=== PATIENT | female | born 1950 | race Caucasian/White ===

== ENCOUNTER 2016-10-11 10:19 | Inpatient (IN) | payer OTHER, MEDICARE ==
[~2016-10-11] VITALS: Ht 171.7 cm; Wt 93.1 kg
[2016-10-16] MEDS ORDERED: METO-309 PO ×2 (13:43)
[2016-10-17] MEDS ORDERED: DEXAMETHASONE SOD PHOS 20 MG/5 ML VIAL IV SCH (07:30)
[2016-10-17] MEDS ORDERED: EXPAREL PERI-ARTICULAR INJECTION (TOTAL VOL. 60 ML) P-ARTICULR SCH ×2 (07:30)
[2016-10-17] MEDS ORDERED: POVIDONE IODINE 7.5% SCRUB 118 ML BOTTLE TOPICAL SCH (07:30)
[2016-10-17] MEDS ORDERED: CHLORHEXIDINE GLUCONATE 2 % 1 PACK (2 CLOTHS) TOPICAL PRN (07:30)
[2016-10-17] MEDS ORDERED: TRANEXAMIC ACID IV SCH ×2 (07:30→13:00)
[2016-10-17] MEDS ORDERED: VANCOMYCIN 1000 MG/NS 250 ML (for <70 kg) IV SCH ×2 (07:30)
[2016-10-17] MEDS ORDERED: INSULIN HUMAN REGULAR 1,000 UNITS/10 ML VIAL SQ PRN (07:30)
[2016-10-17] MEDS ORDERED: SODIUM CHLORID 0.9% 500 ML IV PRN (07:30)
[2016-10-17] MEDS ORDERED: POVIDONE IODINE 5% (ANTISEPSIS KIT) 4 APPLICATIONS EACH NARE PRN (07:30)
[2016-10-17] MEDS ORDERED: LACTATED RINGER'S 1000 ML IV PRN (07:30)
[2016-10-17] MEDS ORDERED: SODIUM CHLORIDE 0.9% IV SCH ×2 (07:30→13:00)
[2016-10-17] MEDS ORDERED: ceFAZolin 2 GM PREMIX 50 ML IV SCH (07:30)
[2016-10-17] MEDS ORDERED: METOPROLOL TARTRATE 25 MG TAB PO PRN (07:30)
[2016-10-17 08:32] VITALS: BP 147/84; PULSE 77; RESP 18; TEMP 98.1; O2SAT 96
[2016-10-17] MEDS ORDERED: GENTAMICIN SULFATE 80 MG/2 ML VIAL ONE (09:10)
[2016-10-17] MEDS ORDERED: FAMOTIDINE 20 MG/2 ML VIAL ONE (09:39)
[2016-10-17] MEDS ORDERED: ACETAMINOPHEN 1000 MG/100 ML VIAL IV ONE ×2 (09:39→10:12)
[2016-10-17] MEDS ORDERED: MIDAZOLAM HCL 2 MG/2 ML VIAL ONE (09:39)
[2016-10-17] MEDS ORDERED: ONDANSETRON HCL 4 MG/2 ML VIAL IV PUSH ONE (12:00)
[2016-10-17] MEDS ORDERED: PROPOFOL 200 MG/20 ML AMP IV ONE (12:00)
[2016-10-17] MEDS ORDERED: PHENYLEPH/NS 1000 MCG/10 ML SYR IV ONE (12:00)
[2016-10-17] MEDS ORDERED: LACTATED RINGER'S 1000 ML INJ 1,000 ML IV ONE (12:00)
[2016-10-17] MEDS ORDERED: NEOSTIGMINE 3 MG/3 ML SYR IV ONE (12:00)
--- NOTE | 2016-10-17 12:23 | PD.OP ---
cc: Bridger Roach MD Operative Report Date of Surgery: Oct 17, 2016 Preoperative Diagnosis: Right hip severe osteoarthritis Postoperative Diagnosis: Same Procedure: Right total hip arthroplasty Anesthesia: Gen. Surgeon: Bridger Roach Program Support Specialist(s): EMA Felix The surgical procedure was assisted by my Advanced Registered Nurse Practitioner. My MANAGER STERILE presence was necessary throughout this case for the manipulation and positioning of the surgical extremity. My MANAGER STERILE was assisting me throughout the duration of this procedure. The skill set of an Advance Registered Nurse Practitioner was medically necessary to complete this procedure. During the surgical case, the nursing surgical services director was working at the back table and the Advance Registered Nurse Practitioner was directly assisting me. Operation and Findings: IMPLANT DESCRIPTION: 1. [place] Gription Cup, acetabular size 52. 2. [place] AltrX polyethylene, neutral. 4. [place] femoral stem size 9, no collar, standard offset. 5. Femoral head/neck ceramic, 36, +1.5. ESTIMATED BLOOD LOSS: 250 cc. JUSTIFICATION FOR PROCEDURE: The patient has end-stage osteoarthritis to the hip. There is an attached conservative measures pathway form in the chart that describes the nonoperative measures that were undertaken prior to consideration of surgical management. The patient understood the risks and benefits of surgical management. See my office notes for further details. PROCEDURE: The patient was brought back to the operative theatre. Adequate anesthesia was obtained. The patient received intravenous vancomycin and Ancef. The patient was carefully placed on the operative table. The lower extremity was prepped and draped in the usual sterile fashion. Fluoroscopic images were obtained. We made a standard anterior incision over the hip. We dissected through the TFL fascia, exposing the anterior capsule. Arthrotomy was performed in a T-shaped fashion. The capsule was tagged with a #2 FiberWire. End-stage arthritis was identified. Osteotomy was performed through the femoral neck exposing the acetabulum. Remnants of the labrum were resected and osteophytes were removed. We sequentially reamed the acetabulum. We trialed the hip and placed the final cup into position. This was done under fluoroscopic guidance to obtain the appropriate inclination and anteversion. A manhole cover was placed into the acetabular component. We then placed the final polyethylene into position and confirmed that it was well seated. Capsular attachments on the calcar and the inner aspect of the greater trochanter were resected. On the proximal aspect of the femur we used a rongeur , box osteotome, canal finder, sequential broaches and lateralizing rasp. We calcar planed the proximal femur. Then thoroughly irrigated the wound. We trialed the hip with the appropriate size stem. We placed the final stem in to position and trialed again. The hip was stable while it was externally rotated 70 degrees when the leg was lowered to the floor. The final head was applied, and final fluoroscopic images were obtained. The wound was thoroughly irrigated again. Interarticular injection of liposomal bupivacaine was given. The capsule was closed with #2 FiberWire and #1 Vicryl. The deep fascia was closed with a #2 Stratafix, followed by 2-0 Vicryl in the skin and ozzy. Postop plan is to weight-bear as tolerated. DVT prophylaxis will be performed with Hilda, LISA ibarra, early mobilization, and Lovenox followed by aspirin. Bridger Roach MD Oct 17, 2016 12:23
[2016-10-17] MEDS ORDERED: NORC5TAB PO (12:25)
[2016-10-17] MEDS ORDERED: ENOX40P SQ (12:25)
[2016-10-17] MEDS ORDERED: ASPI325T PO (12:25)
[2016-10-17] MEDS ORDERED: MAGNESIUM HYDROXIDE SUSP 30 ML CUP PO PRN (12:30)
[2016-10-17] MEDS ORDERED: BISACODYL 10 MG SUPP RECTAL PRN (12:30)
[2016-10-17] MEDS ORDERED: diphenhydrAMINE HCL 50 MG/ML VIAL IV PRN (12:30)
[2016-10-17] MEDS ORDERED: ONDANSETRON HCL 4 MG/2 ML VIAL IVP PRN (12:30)
[2016-10-17] MEDS ORDERED: MORPHINE SULFATE 4 MG/ML INJ IV PUSH PRN (12:30)
[2016-10-17] MEDS ORDERED: ALUMINUM/MAGNESIUM/SIMETH 30 ML CUP PO PRN (12:30)
[2016-10-17] MEDS ORDERED: NALOXONE HCL 0.4 MG/ML AMP IV PRN (12:30)
[2016-10-17] MEDS ORDERED: Post-op Orders (for Pharmacy) MISC XX ONE (12:30)
[2016-10-17] MEDS ORDERED: SODIUM CHLORIDE 0.9% FLUSH 5 ML FLUSH IVF PRN (12:30)
[2016-10-17] MEDS ORDERED: *morphine SULFATE 8 MG/ML PERIprocedure ONLY ONE ×3 (12:48→14:41)
[2016-10-17] MEDS ORDERED: PILL SPLITTER OTHER PRN (13:00)
[2016-10-17] MEDS ORDERED: DO NOT ADM ANY ANTICOAGULANT DRUGS PRN (13:00)
[2016-10-17] MEDS ORDERED: MORPHINE SULFATE 4 MG/ML INJ ONE (13:17)
[2016-10-17] MEDS ORDERED: fentaNYL CITRATE 250 MCG/5 ML AMP ONE (13:17)
[2016-10-17] MEDS ORDERED: DIMETHICONE/OXYBENZONE/PADMIATE LIP BALM 4.25 GM TOPICAL ONE (13:21)
[2016-10-17] MEDS: SODIUM CHLOR 0.9% 1000 ML INJ 1,000 ML IV SCH (14:20)
--- NOTE | 2016-10-17 14:26 | RADRPT ---
EXAM DATE/TIME: 10/17/2016 14:38 [facility] COMPARISON: No previous studies available for comparison. INDICATIONS : Post-op total right hip arthroplasty. MEDICAL HISTORY : Hypertension. SURGICAL HISTORY : Appendectomy. Tubal ligation. Lary orosco. ENCOUNTER: Initial ACUITY: 1 day PAIN SCORE: 9/10 LOCATION: Right Hip. FINDINGS: The patient is status post a total hip arthroplasty with a bipolar prosthesis. Prosthesis is well-sea jacky. Alignment is anatomic. A fracture is not appreciated. CONCLUSION: Anatomic alignment. Juan Lanza MD FACR Board Certified Radiologist. This report was verified electronically.
--- NOTE | 2016-10-17 14:38 | RADRPT ---
EXAM DATE/TIME: 10/17/2016 10:57 [facility] COMPARISON: No previous studies available for comparison. INDICATIONS : Right hip pain. Right total hip. OR. MEDICAL HISTORY : None. SURGICAL HISTORY : None. ENCOUNTER: Initial ACUITY: 1 day PAIN SCORE: Non-responsive. LOCATION: Right hip FINDINGS: The patient is status post a total hip arthroplasty with a bipolar prosthesis. Prosthesis is well-sea jacky. Alignment is anatomic. A fracture is not appreciated. CONCLUSION: Anatomic alignment. Juan Lanza MD FACR Board Certified Radiologist. This report was verified electronically.
--- NOTE | 2016-10-17 14:47 | HHI.DCPOC ---
Discharge Care Plan Diagnosis: (1) Osteoarthritis of right hip (2) Status post total hip replacement, right Your Health Problems Are: Difficulty with ADL Goals to Promote Your Health * To prevent worsening of your condition and complications * To maintain your health at the optimal level Directions to Meet Your Goals Take your medications as prescribed Follow your dietary instruction Follow activity as directed Keep your appointments as scheduled Take your immunizations and boosters as scheduled If your symptoms worsen call your PCP, if no PCP go to Urgent Care Center or Emergency Room Smoking is Dangerous to Your Health. Avoid second hand smoke Call the 24-hour hour crisis hotline for domestic abuse at Matt Timmons Oct 17, 2016 14:47
--- NOTE | 2016-10-17 14:48 | HHI.FF ---
Face to Face Verification Diagnosis: (1) Osteoarthritis of right hip (2) Status post total hip replacement, right Physical Therapy Gait training, Transfer training, bed to chair Hip: Total hip Right LE Weight Bearing: WB as tolerated Right LE Range of Motion: Active ROM Nursing Nursing: Tate teaching, Dressing changes Dressing Changes: Daily dressing change I have seen patient Angelic Howe on 10/17/16. My clinical findings support the need for the requested home health care services because: Limited ability to care for self High risk of falls I certify that my clinical findings support that this patient is homebound because: Post-op weakness Unsteady gait/balance Matt Timmons Oct 17, 2016 14:48
[2016-10-17] MEDS ORDERED: WALKER WHEELS/F1 MIS (14:50)
[2016-10-17] MEDS ORDERED: COMMODE 3-IN-11 MIS (14:50)
[2016-10-17 19:56] VITALS: BP 126/65; PULSE 82; RESP 16; TEMP 98.1; O2SAT 95
[2016-10-17] MEDS ORDERED: SODIUM CHLORIDE 0.9% FLUSH 5 ML FLUSH IVF SCH (21:00)
[2016-10-17] MEDS ORDERED: ZOLPIDEM TARTRATE 5 MG TAB PO PRN (21:00)
[2016-10-17] MEDS ORDERED: METOPROLOL TARTRATE 25 MG TAB PO SCH (21:00)
[2016-10-17] MEDS: ACETAMINOPHEN/HYDROcodone 325 MG/5 MG TAB PO PRN (21:21)
[2016-10-18 00:55] VITALS: BP 118/60; PULSE 81; RESP 16; TEMP 96.7; O2SAT 95
[2016-10-18] MEDS: SODIUM CHLOR 0.9% 1000 ML INJ 1,000 ML IV SCH (03:34)
[2016-10-18] MEDS: ACETAMINOPHEN/HYDROcodone 325 MG/5 MG TAB PO PRN ×4 (04:31→13:36)
[2016-10-18 04:45] VITALS: BP 124/66; PULSE 73; RESP 16; TEMP 97.8; O2SAT 93
[2016-10-18 05:17] LABS: MEAN CORPUSCULAR HEMOGLOBIN 29.9 PG (27.0-34.0); MEAN CORPUSCULAR HGB CONC 32.8 % (32.0-36.0); PLATELET COUNT 213 TH/MM3 (150-450); RED BLOOD COUNT 3.73 MIL/MM3 (4.00-5.30); RED CELL DISTRIBUTION WIDTH 13.2 % (11.6-17.2); REVIEW FLAG FINAL
[2016-10-18] MEDS ORDERED: DEXAMETHASONE SOD PHOS 20 MG/5 ML VIAL IV ONE (07:45)
[2016-10-18 08:25] VITALS: BP 111/62; PULSE 78; RESP 16; TEMP 97.2; O2SAT 96
[2016-10-18] MEDS ORDERED: METOPROLOL TARTRATE 25 MG TAB PO SCH (09:00)
[2016-10-18 10:49] VITALS: O2SAT 97
[2016-10-18 11:42] VITALS: BP 126/73; PULSE 80; RESP 16; TEMP 98.6; O2SAT 92
[2016-10-18] MEDS ORDERED: ENOXAPARIN SODIUM 40 MG/0.4 ML SYRINGE SQ SCH (12:00)
--- NOTE | 2016-10-18 12:18 | PD.CONS ---
HPI [facility] Hospitalists Consult Requested By Dr. Roach Reason for Consult Medical management Primary Care Physician Maureen aSndoval M.D. Diagnoses: History of Present Illness This a 66-year-old female with significant past medical history gastric arthritis, hypertension. Patient was admitted for elective surgery. Underwent right total hip arthroplasty per Dr. Roach. Postoperative course has been uneventful. She is afebrile. Pain is minimal, right leg feels slightly heavy with movement. Hospitalist services are requested for medical management. Review of Systems Constitutional: DENIES: Diaphoretic episodes, Fatigue, Fever, Weight gain, Weight loss, Chills, Dizziness, Change in appetite, Night Sweats Endocrine: DENIES: Abnorml menstrual pattern, Heat/cold intolerance, Polydipsia , Polyuria, Polyphagia Eyes: DENIES: Blurred vision, Diplopia, Eye inflammation, Eye pain, Vision loss , Photosensitivity, Double Vision Ears, nose, mouth, throat: DENIES: Tinnitus, Hearing loss, Vertigo, Nasal discharge, Oral lesions, Throat pain, Hoarseness, Ear Pain, Running Nose, Epistaxis, Sinus Pain, Toothache, Odynophagia Respiratory: DENIES: Apneas, Cough, Snoring, Wheezing, Hemoptysis, Sputum production, Shortness of breath Cardiovascular: DENIES: Chest pain, Palpitations, Syncope, Dyspnea on Exertion , PND, Lower Extremity Edema, Orthopnea, Claudication Gastrointestinal: DENIES: Abdominal pain, Black stools, Bloody stools, Constipation, Diarrhea, Nausea, Vomiting, Difficulty Swallowing, Anorexia Genitourinary: DENIES: Abnormal vaginal bleeding, Dysmenorrhea, Dyspareunia, Sexual dysfunction, Urinary frequency, Urinary incontinence, Urgency, Hematuria , Dysuria, Nocturia, Vaginal discharge Musculoskeletal: COMPLAINS OF: Joint pain Integumentary: DENIES: Abnormal pigmentation, Pruritus, Rash, Nail changes, Breast masses, Breast skin changes, Nipple discharge Hematologic/lymphatic: DENIES: Bruising, Lymphadenopathy Immunologic/allergic: DENIES: Eczema, Urticaria Neurologic: DENIES: Abnormal gait, Headache, Localized weakness, Paresthesias, Seizures, Speech Problems, Tremor, Poor Balance Psychiatric: DENIES: Anxiety, Confusion, Mood changes, Depression, Hallucinations, Agitation, Suicidal Ideation, Homicidal Ideation, Delusions Past Family Social History Past Medical History HTN OA Past Surgical History Tummy tuck Appendectomy Tubal ligation Reported Medications Reported Meds & Active Scripts Active [place] (Hydrocodone-Acetaminophen) 5-325 mg Tab 1-2 Tab PO Q4H PRN Aspirin 325 Mg Tab 325 Mg PO DAILY Start Aspirin after Lovenox is completed. Lovenox Inj (Enoxaparin Sodium) 40 Mg/0.4 Ml Syr 40 Mg SQ DAILY Start Aspirin after Lovenox is completed. Reported Lopressor (Metoprolol Tartrate) 50 Mg Tab 12.5 Mg PO HS Lopressor (Metoprolol Tartrate) 50 Mg Tab 25 Mg PO DAILY Allergies: Coded Allergies: Macrodantin (Verified Allergy, Severe, Rash, 10/17/16) Meloxicam (Verified Allergy, Severe, Rash, 10/17/16) REDNESS ON FACE AFTER FIRST DOSE Penicillin (Verified Allergy, Severe, Rash, 10/17/16) Active Ordered Medications Inpatient Medications Acetaminophen/ Hydrocodone Bitart 2 tab 2 tab Q4H PRN PO PAIN SCALE 5 TO 10 Last administered on 10/18/16 09:59; Start 10/17/16 at 12:30 Acetaminophen/ Hydrocodone Bitart ([place] 5-325 Mg) 1 tab Q4H PRN PO PAIN LESS THAN 5 ON SCALE Last administered on 10/18/16 05:37; Start 10/17/16 at 12:30 Al Hydrox/Mg Hydrox/Simethicone (Mag-Al Plus Susp Liq) 30 ml Q6H PRN PO INDIGESTION; Start 10/17/16 at 12:30 Bisacodyl (Dulcolax Supp) 10 mg DAILY PRN RECTAL CONSTIPATION; Start 10/17/16 at 12:30 Bupivacaine Liposome 20 ml/ Sodium Chloride 60 ml @ 120 mls/hr ONCE P-ARTICULR Last administered on 10/17/16 11:33; Start 10/17/16 at 07:30; Stop 10/18/16 at 07:29; Status DC Cefazolin Sodium/ Dextrose (Ancef 2 Gm Premix) 50 ml @ 100 mls/hr CATTLE MANAGER IV Last administered on 10/17/16 09:13; Start 10/17/16 at 07:30; Stop 10/20/16 at 07: 29 Cefazolin Sodium/ Sodium Chloride (Ancef Inj/NS Inj) 100 ml @ 200 mls/hr Q6H IV Last administered on 10/18/16 03:34; Start 10/17/16 at 15:00; Stop 10/18/16 at 03:29; Status DC Chlorhexidine Gluconate (Chlorhexidine 2% Cloth) 3 pack CATTLE MANAGER PRN TOPICAL SEE LABEL COMMENTS; Start 10/17/16 at 07:30; Stop 10/20/16 at 07:29 Dexamethasone Sodium Phosphate (Decadron Inj) 10 mg ONCE ONCE IV Last administered on 10/18/16 08:27; Start 10/18/16 at 07:45; Stop 10/18/16 at 07:46; Status DC Dexamethasone Sodium Phosphate 10 mg 10 mg CATTLE MANAGER IV Last administered on 10/17 08:47; Start 10/17/16 at 07:30; Stop 10/20/16 at 07:29 Diphenhydramine HCl (Benadryl Inj) 25 mg Q6H PRN IV ITCHING Last administered on 10/18/16 11:53; Start 10/17/16 at 12:30 Docusate Sodium (Colace) 100 mg BID PO ; Start 10/18/16 at 21:00 Enoxaparin Sodium (Lovenox Inj) 40 mg Q24H SQ Last administered on 10/18/16 11: 45; Start 10/18/16 at 12:00; Stop 10/27/16 at 12:01 Insulin Human Regular (NovoLIN R INJ) See Protocol Table ... CATTLE MANAGER PRN SQ SEE PROTOCOL TABLE; Start 10/17/16 at 07:30; Stop 10/20/16 at 07:29 IV Flush (NS Flush) 2 ml UNSCH PRN IVF FLUSH AFTER USING IV ACCESS; Start at 12:30 IV Flush 2 ml 2 ml BID IVF ; Start 10/17/16 at 21:00 Lactated Ringer's 1,000 ml @ 0 mls/hr Q0M PRN IV SEE LABEL COMMENTS Last administered on 10/17/16 07:45; Start 10/17/16 at 07:30; Stop 10/17/16 at 12:50; Status DC Magnesium Hydroxide (Milk Of Magnesia Liq) 30 ml DAILY PRN PO CONSTIPATION; Start 10/17/16 at 12:30 Metoprolol Tartrate (Lopressor) 12.5 mg HS PO Last administered on 10/17/16 21: 18; Start 10/17/16 at 21:00 Metoprolol Tartrate 25 mg 25 mg DAILY PO Last administered on 10/18/16 08:26; Start 10/18/16 at 09:00 Miscellaneous (Pill Splitter) 1 ea UNSCH PRN OTHER SEE LABEL COMMENTS; Start at 13:00 Miscellaneous Information ALL NURSING DEPARTME... UNSCH PRN .XX SEE LABEL COMMENTS; Start 10/17/16 at 13:00; Stop 10/18/16 at 12:59 Miscellaneous Information (Post-op Orders (for Pharmacy)) STAT ONCE XX ; Start 10/17/16 at 12:30; Stop 10/17/16 at 12:46; Status DC Morphine Sulfate (Morphine Inj) 2 mg Q3H PRN IV PUSH pain greater than 5; Start 10/17/16 at 12:30 Multivitamins/ Minerals Therapeutic (Theragran M Tab) 1 tab BID PO ; Start at 21:00; Stop 12/17/16 at 20:59 Naloxone HCl (Narcan Inj) 0.4 mg UNSCH PRN IV RESPIRATORY RATE LESS THAN 10; Start 10/17/16 at 12:30 Ondansetron HCl (Zofran Inj) 4 mg Q6H PRN IVP NAUSEA OR VOMITING; Start at 12:30 Povidone Iodine (Betadine 5% Antisepsis Kit) 1 applic CATTLE MANAGER PRN EACH NARE SEE LABEL COMMENTS; Start 10/17/16 at 07:30; Stop 10/20/16 at 07:29 Povidone Iodine 1 applic 1 applic ONCE TOPICAL Last administered on 10/17/16 07 :30; Start 10/17/16 at 07:30; Stop 10/20/16 at 07:29 Sodium Chloride (NS 1000 ml Inj) 1,000 ml @ 100 mls/hr Q10H IV Last administered on 10/18/16 03:34; Start 10/17/16 at 12:20 Sodium Chloride (NS 500 ml Inj) 500 ml @ 30 mls/hr [id number] PRN IV SEE LABEL COMMENTS; Start 10/17/16 at 07:30; Stop 10/17/16 at 12:50; Status DC Tranexamic Acid 847 mg/Sodium Chloride 108.47 ml @ 200 mls/ hr ONCE IV Last administered on 10/17/16 10:29; Start 10/17/16 at 07:30; Stop 10/18/16 at 07:29; Status DC Tranexamic Acid/ Sodium Chloride (Cyklokapron Inj/ NS Inj) 108.47 ml @ 200 mls / hr UNSCH IV Last administered on 10/17/16 14:20; Start 10/17/16 at 13:00; Stop 10/17/16 at 19:00; Status DC Vancomycin HCl 1000 mg/Sodium Chloride 250 ml @ 250 mls/hr CATTLE MANAGER IV Last administered on 10/17/16 09:30; Start 10/17/16 at 07:30; Stop 10/20/16 at 07:29 Zolpidem Tartrate (Ambien) 5 mg HS PRN PO SLEEP; Start 10/17/16 at 21:00 Family History Reviewed, non contributory Social History , lives with . No EtOH, no substance abuse, no tobacco abuse. Physical Exam Vital Signs Vital Signs Date Time Temp Pulse Resp B/P Pulse Ox O2 Delivery O2 Flow Rate FiO2 10/18/16 10:49 97 Nasal Cannula 2.00 10/18/16 08:25 97.2 78 16 111/62 96 10/18/16 04:45 97.8 73 16 124/66 93 10/18/16 00:55 96.7 81 16 118/60 95 10/17/16 19:56 98.1 82 16 126/65 95 10/17/16 16:00 75 12 119/65 98 10/17/16 15:00 76 12 109/67 95 Nasal Cannula 2 10/17/16 14:15 96.9 76 12 134/78 95 Nasal Cannula 2 10/17/16 14:00 66 12 144/74 98 Nasal Cannula 2 10/17/16 13:45 73 12 139/71 96 Nasal Cannula 2 10/17/16 13:30 70 12 125/65 95 Nasal Cannula 2 10/17/16 13:15 75 14 136/76 95 Nasal Cannula 2 10/17/16 13:00 76 14 146/84 98 Nasal Cannula 3 10/17/16 12:50 78 14 136/60 96 Nasal Cannula 3 10/17/16 12:43 97.2 80 14 124/75 93 Nasal Cannula 3 Physical Exam GENERAL: This is a well-nourished, well-developed patient, in no apparent distress. SKIN: No rashes, ecchymoses or lesions. Cool and dry. HEAD: Atraumatic. Normocephalic. No temporal or scalp tenderness. EYES: Pupils equal round and reactive. Extraocular motions intact. No scleral icterus. No injection or drainage. ENT: Nose without bleeding, purulent drainage or septal hematoma. Throat without erythema, tonsillar hypertrophy or exudate. Uvula midline. Airway patent. NECK: Trachea midline. No JVD or lymphadenopathy. Supple, nontender, no meningeal signs. CARDIOVASCULAR: Regular rate and rhythm without murmurs, gallops, or rubs. RESPIRATORY: Clear to auscultation. Breath sounds equal bilaterally. No wheezes , rales, or rhonchi. GASTROINTESTINAL: Abdomen soft, non-tender, nondistended. No hepato-splenomegaly , or palpable masses. No guarding. MUSCULOSKELETAL: Right hip with dressing D/I. intact sensation to the right foot , able to dorsiflex. Painful with range of motion of the right hip. NEUROLOGICAL: Awake and alert. Cranial nerves II through XII intact. Motor and sensory grossly within normal limits. Five out of 5 muscle strength in all muscle groups. Normal speech. Laboratory Laboratory Tests Test 10/18/16 04:48 White Blood Count 13.0 Red Blood Count 3.73 Hemoglobin 11.2 Hematocrit 34.0 Mean Corpuscular Volume 91.0 Mean Corpuscular Hemoglobin 29.9 Mean Corpuscular Hemoglobin 32.8 Concent Red Cell Distribution Width 13.2 Platelet Count 213 Mean Platelet Volume 9.3 Result Diagram: 10/18/16 0448 Imaging Last Impressions Hip and Pelvis X-Ray 10/17/16 1220 Signed Impressions: Service Date/Time: Monday, October 17, 2016 14:38 - CONCLUSION: Anatomic alignment. Juan Lanza MD Hip X-Ray 10/17/16 0000 Signed Impressions: Service Date/Time: Monday, October 17, 2016 10:57 - CONCLUSION: Anatomic alignment. Juan Lanza MD A/P Diagnosis: (1) Status post total hip replacement, right (2) HTN (hypertension) (3) Osteoarthritis of right hip (4) Leukocytosis Assessment and Plan Thank you for this consultation, we will assist with medical management 66-year-old female with history of osteoarthritis, status post right total hip arthroplasty. -Continue with postoperative orthopedic care -Pain management Lovenox for DVT prophylaxis Physical therapy -Wound care Hypertension, stable -Continue with home medications Leukocytosis, possibly secondary to stress CBC in the morning Monitor for fever Lovenox for DVT prophylaxis Labs in the morning Home medications reviewed, already initiated Plan of care discussed with the patient and her , attending, RN. Further management of the patient will be dependent on the hospital course This patient was seen by myself and Dr. Montanez, this consultation is written on her behalf Problem Qualifiers (1) HTN (hypertension): Qualified Code: I10 - Essential hypertension (2) Osteoarthritis of right hip: Qualified Code: M16.11 - Osteoarthritis of right hip, unspecified osteoarthritis type Trinity Rubio Oct 18, 2016 12:18
--- NOTE | 2016-10-18 12:32 | PD.ORT.PN ---
Subjective Post Op Day #: 1 Subjective Remarks The patient is OOB in chair with mild pain to the right hip. Overall the patient is feeling well and wants to go home with home health today. Family at bedside. Objective Vitals Vital Signs Date Time Temp Pulse Resp B/P Pulse Ox O2 Delivery O2 Flow Rate FiO2 10/18/16 10:49 97 Nasal Cannula 2.00 10/18/16 08:25 97.2 78 16 111/62 96 10/18/16 04:45 97.8 73 16 124/66 93 10/18/16 00:55 96.7 81 16 118/60 95 10/17/16 19:56 98.1 82 16 126/65 95 10/17/16 16:00 75 12 119/65 98 10/17/16 15:00 76 12 109/67 95 Nasal Cannula 2 10/17/16 14:15 96.9 76 12 134/78 95 Nasal Cannula 2 10/17/16 14:00 66 12 144/74 98 Nasal Cannula 2 10/17/16 13:45 73 12 139/71 96 Nasal Cannula 2 10/17/16 13:30 70 12 125/65 95 Nasal Cannula 2 10/17/16 13:15 75 14 136/76 95 Nasal Cannula 2 10/17/16 13:00 76 14 146/84 98 Nasal Cannula 3 10/17/16 12:50 78 14 136/60 96 Nasal Cannula 3 10/17/16 12:43 97.2 80 14 124/75 93 Nasal Cannula 3 I/O 10/17/16 10/17/16 10/17/16 10/18/16 10/18/16 10/18/16 07:00 15:00 23:00 07:00 15:00 23:00 Intake Total 1400 ml 1170 ml 1332 ml Output Total 800 ml 750 ml 1750 ml Balance 600 ml 420 ml -418 ml Intake Oral 680 ml 480 ml IV Total 100 ml 490 ml 852 ml Other 1300 ml Output Urine Total 550 ml 700 ml 1750 ml Emesis 50 ml Estimated Blood Loss 250 ml # Bowel Movements 0 0 Result Diagram: 10/18/16 0448 Procedures Right JERROD Objective Remarks Patient's dressing is changed with no drainage. Incision is well approximated with surgical clips intact. Mild ecchymosis. No redness or s/s of infection. EHL/TA/G intact. 2+ pedal pulse. Minimal swelling. Calf is soft and nontender. + SILT. Assessment & Plan Ortho Post Op Day #: 1 Problem List: Assessment and Plan POD #1: Right JERROD 1. WBAT RLE 2. Lovenox for DVT prophylaxis 3. Ice to the right hip PRN 4. Stable for discharge home with home health today. Matt Timmons Oct 18, 2016 12:32
[2016-10-18] MEDS ORDERED: MULTIVITAMINS/MINERALS THERAPEUTIC TAB PO SCH (21:00)
[2016-10-18] MEDS ORDERED: DOCUSATE SODIUM 100 MG CAP PO SCH (21:00)
--- NOTE | 2016-10-22 20:16 | HHI.DS ---
Discharge Summary Admission Date Oct 17, 2016 at 06:17 Discharge Date: Oct 18, 2016 Admitting Diagnosis Right hip OA Status post total hip arthroplasty, right Diagnosis: (1) Osteoarthritis of right hip Diagnosis: Principal (2) Status post total hip replacement, right Diagnosis: Principal Procedures Right JERROD Brief History This is a 66 year old female patient with severe OA of the right hip CBC/BMP: 10/18/16 0448 PE at Discharge Patient's dressing is changed with no drainage. Incision is well approximated with surgical clips intact. Mild ecchymosis. No redness or s/s of infection. EHL/TA/G intact. 2+ pedal pulse. Minimal swelling. Calf is soft and nontender. + SILT. Hospital Course The patient was admitted for severe OA of the right hip to have a right JERROD. The patient's surgery went well without complication. The patient is WBAT. The patient is on Lovenox for DVT prophylaxis. The patient had a regular diet. The patient was discharged home with home health on and will f/u with Dr. Roach in 1-2 weeks as previously scheduled. Pt Condition on Discharge: Stable Discharge Disposition: Disch w/ Home Health Serv Discharge Instructions Diet Instructions: As Tolerated, No Restrictions Activities You Can Perform: Weight Bearing as Saray Activities to Avoid: Strenuous Activity Follow up Referrals: Orthopedics with Bridger Roach MD [facility]/ with Nurse coroner transport technician [phone] New Medications: Aspirin (Aspirin) 325 Mg Tab 325 MG PO DAILY Start Aspirin after Lovenox is completed. Prevent Blood Clot # 30 Ref 0 TAB Commode 3-in-1 (Commode 3-in-1) 1 Mis Mis 1 EA .ROUTE DIRECTED #1 Ref 0 EA Enoxaparin Inj (Lovenox Inj) 40 Mg/0.4 Ml Syr 40 MG SQ DAILY Start Aspirin after Lovenox is completed. Blood Clot Prevention # 10 Ref 0 SYRINGE Hydrocodone-Acetaminophen ([place]) 5-325 mg Tab 1-2 TAB PO Q4H PRN PAIN #60 Ref 0 TAB Walker with Front Wheels (Walker with Front Wheels) 1 Mis Mis 1 EA .ROUTE DIRECTED #1 Ref 0 EA Continued Medications: Metoprolol Tartrate (Lopressor) 50 Mg Tab 25 MG PO DAILY #15 Ref 0 TAB Metoprolol Tartrate (Lopressor) 50 Mg Tab 12.5 MG PO HS #30 Ref 0 TAB Matt Timmons [employer] Oct 22, 2016 20:15
== END 2016-10-18 15:13 | disposition home health service (06) | DRG 470 ==
LOC: HSDI 10-17 06:17 → N06B 10-17 18:52
PROVIDERS: ADMIT Orthopaedic Surgery; ATTEND Orthopaedic Surgery
PROC: 0SR904A Replacement of Right Hip Joint with Ceramic on Polyethylene Synthetic Substitute, Uncemented, Open Approach (ICD-10-PCS; principal; 2016-10-17 09:50)
DX: M16.11 Unilateral primary osteoarthritis, right hip (principal); I10 Essential (primary) hypertension; D72.829 Elevated white blood cell count, unspecified
CPT/HCPCS: 73502; 76000; 85027; 86850; 86900; 86901; 94150; C1776; C9290; J0131; J0690; J1100; J1200; J1580; J1650; J2250; J2270; J2370; J2405; J2710; J3010; J3370; J7030; J7050; J7120

== ENCOUNTER → 2017-07-10 | Outpatient (CLI) | payer OTHER ==
[~2017-07-10] MED LIST: ASPI-183 PO; COMMODE 3-IN-11 MIS; ENOX40P SQ; METO-309 PO; NORC5TAB PO; WALKER WHEELS/F1 MIS
--- NOTE | 2017-07-15 09:36 | RSPPFT ---
DATE OF PROCEDURE: 07/10/17 COMMENTS: The forced vital capacity, FEV1, FEV1/FVC ratio and FEF 25-75 are all normal. There is no significant improvement after bronchodilator. The total lung capacity shows a small reduction with a reduced residual volume but a normal RV/TLC ratio. IMPRESSION: Findings are consistent with mild restrictive lung disease.
== END ==
LOC: PHRSP 07:49
PROVIDERS: ATTEND Internal Medicine Cardiovascular Disease
DX: R06.02 Shortness of breath (principal)
CPT/HCPCS: 94060; 94726; 94729